=== PATIENT | male | born 1980 ===

== ENCOUNTER → 2019-10-01 13:03 | Outpatient (CLI) | payer OTHER | END | disposition home or self-care (01) | LOC: LAB 13:03 | DX: Z11.3 Encounter for screening for infections with a predominantly sexual mode of transmission (principal) ==

== ENCOUNTER 2019-10-08 14:07 | Outpatient (CLI) | payer OTHER | END 2019-10-08 15:00 | disposition home or self-care (01) | LOC: LAB 14:07 | DX: Z11.3 Encounter for screening for infections with a predominantly sexual mode of transmission (principal); Z11.59 Encounter for screening for other viral diseases ==